=== PATIENT | male | born 1960 | race Caucasian/White ===

== ENCOUNTER 2019-03-23 18:52 | Emergency (ER) | payer OTHER ==
[~2019-03-23] VITALS: Ht 177.8 cm; Wt 108.9 kg
[~2019-03-23 18:52] MED LIST: ACETAMINOPHEN-1 EAC1 PO; FLEXERIL PO; IBUPROFEN 800800 M1 PO
[2019-03-23 19:32] LABS: ABSOLUTE BASOPHILS 0.1 thou/uL (0.0-0.2); ABSOLUTE EOSINOPHILS 0.3 thou/uL (0.0-0.7); ABSOLUTE MONOCYTES 0.6 thou/uL (0.0-1.2); BASOPHILS 0.8 %; EOSINOPHILS 3.4 %; HEMATOCRIT 43.5 % (42.0-52.0); LYMPHOCYTES 25.4 %; MCH 30.7 pg (26.0-34.0); MCHC 34.4 g/dL (28.0-37.0); MCV 89.2 fL (80.0-100.0); MONOCYTES 7.7 %; MPV 8.7 fl. (7.2-11.1); NUCLEATED RBCS 0 /100WBC; PLATELET COUNT* 274 thou/uL (150-400); POLYS 62.7 %; RBC 4.88 mil/uL (4.50-6.00); RDW-CV 14.5 % (10.5-14.5)
[2019-03-23 19:38] LABS: ANION GAP 7 mmol/L (7-16); BUN 8 mg/dL (7-18); CALCIUM 8.7 mg/dL (8.5-10.1); CHLORIDE 105 mmol/L (98-107); CO2 30 mmol/L (21-32); CREATININE 0.9 mg/dL (0.6-1.3); GLUCOSE 106 mg/dL (70-99); POTASSIUM 3.9 mmol/L (3.5-5.1); SODIUM 142 mmol/L (136-145)
[2019-03-23 19:47] LABS: ALBUMIN 3.7 g/dL (3.4-5.0); ALKALINE PHOSPHATASE 61 U/L (46-116); LIPASE 139 U/L (73-393); SGOT 21 U/L (15-37); SGPT 37 U/L (30-65); TOTAL BILIRUBIN 0.3 mg/dL (<0.1-1.0); TOTAL PROTEIN 6.8 g/dL (6.4-8.2); TROPONIN-I LEVEL <0.06 ng/mL (<0.06)
[2019-03-23] MEDS ORDERED: ANUSOL-HC25 MG RECTAL (20:23)
[2019-03-23] MEDS ORDERED: COLACE100 MG PO (20:23)
[2019-03-23 20:34] VITALS: BP 133/89
--- NOTE | 2019-03-24 16:14 | EKG ---
[place] [address] ELECTROCARDIOGRAM REPORT Name: SAUL FOREMAN Room: [facility]#: [id number] Admission: 03/23/19 Attend Phys: Discharge: 03/23/19 Date of : 56 Report #: [id number] THIS REPORT FOR: //name// [facility] ED Test Date: 2019-03-23 Test Time: 19:16:29 Pat Name: ASUL GRIGGSY Department: Room: Gender: M Mat Puncher: LEEANNA : 1960 Requested By: Michael Holly Order Number: [id number] MD: Yong Guzmán Measurements Intervals [place] Rate: 83 P: 53 RI: 177 QRS: -38 QRSD: 84 T: 32 QT: 371 QTc: 436 Interpretive Statements Sinus rhythm Left axis deviation Abnormal R-wave progression, late transition No previous ECG available for comparison Electronically Signed On 03-24-2019 16:14:27 CDT by Yong Guzmán [email or web address] <ELECTRONICALLY SIGNED> By: Yong Guzmán MD, [facility] 03/24/19 1614 1916 15 Yong Guzmán MD, FACC /EPI
== END 2019-03-23 20:35 | disposition home or self-care (01) ==
LOC: M.ERS 18:52
PROVIDERS: Family Medicine
DX: K64.5 Perianal venous thrombosis (principal); Z88.8 Allergy status to other drugs, medicaments and biological substances